=== PATIENT | male | born 1970 | race Asian ===

== ENCOUNTER 2020-03-19 19:34 | Emergency (ER) | payer OTHER ==
[~2020-03-19] VITALS: Ht 175.3 cm; Wt 80.7 kg
[2020-03-19 19:41] VITALS: BP 130/96; Ht 175.3 cm; Wt 80.7 kg
== END 2020-03-19 22:46 | disposition home or self-care (01) ==
LOC: ED 19:34
DX: S61.213A Laceration without foreign body of left middle finger without damage to nail, initial encounter (principal); S60.512A Abrasion of left hand, initial encounter; S60.511A Abrasion of right hand, initial encounter; W01.0XXA Fall on same level from slipping, tripping and stumbling without subsequent striking against object, initial encounter; Y93.01 Activity, walking, marching and hiking; Y92.89 Other specified places as the place of occurrence of the external cause; Y99.8 Other external cause status
CPT/HCPCS: 90715; J2001

== ENCOUNTER 2020-03-21 16:17 | Emergency (ER) | payer OTHER ==
[~2020-03-21] VITALS: Ht 172.7 cm; Wt 73.9 kg
[2020-03-21 16:30] VITALS: Ht 172.7 cm; Wt 73.9 kg
[2020-03-21 18:47] VITALS: BP 117/83
== END 2020-03-21 18:47 | disposition home or self-care (01) ==
LOC: ED 16:17
DX: S61.213D Laceration without foreign body of left middle finger without damage to nail, subsequent encounter (principal); L08.9 Local infection of the skin and subcutaneous tissue, unspecified; X58.XXXD Exposure to other specified factors, subsequent encounter

== ENCOUNTER 2020-03-27 18:42 | Emergency (ER) | payer OTHER ==
[~2020-03-27] VITALS: Ht 172.7 cm; Wt 73.9 kg
[2020-03-27 18:58] VITALS: Ht 172.7 cm; Wt 73.9 kg
[2020-03-27 19:24] VITALS: BP 116/84
== END 2020-03-27 19:24 | disposition home or self-care (01) ==
LOC: ED 18:42
DX: S61.213D Laceration without foreign body of left middle finger without damage to nail, subsequent encounter (principal); X58.XXXD Exposure to other specified factors, subsequent encounter